=== PATIENT | male | born 1925 | race Hispanic/Latino ===

== ENCOUNTER 2017-02-25 14:32 | Inpatient (IN) | payer MEDICARE, OTHER ==
--- NOTE | 2017-02-25 14:41 | ED PDOC ---
Arrival/HPI - General Time Seen by Provider: 02/25/17 14:35 Historian: Family, EMS - History of Present Illness Narrative History of Present Illness (Text): 02/25/17 14:56 Patient is an 89 yo male, as per family has past history including dementia, presents to emergency department with altered mental status. As per patient's daughter, patient "woke up this morning around 930" and he appeared to be weak and "this morning he couldn't cone picker his cup and spoon" and he "usually is able to do this". Family thought that the patient "maybe was just sleepy" and "he went back to bed" and family "had to wake him up at around 2 pm" and he " was not acting himself". No history of recent injury or trauma. Patient denies headache, denies chest pain or shortness of breath. Time/Duration: Other (since awakening at 0930 this morning) Past Medical History - Infectious Disease Hx of Infectious Diseases: None - Tetanus Immunization Tetanus Immunization: Unknown - Cardiac Hx Cardiac Disorders: Yes (CAD, pacemaker) - Pulmonary Hx Respiratory Disorders: No - Neurological Hx Dementia: Yes Hx Transient Ischemic Attacks (TIA): Yes - HEENT Hx HEENT Disorder: Yes Hx Cataracts: Yes Hx Glaucoma: Yes - Renal Hx Renal Disorder: No - Endocrine/Metabolic Hx Diabetes Mellitus Type 2: Yes Hx Hypothyroidism: Yes - Hematological/Oncological Hx Blood Disorders: No - Integumentary Hx Dermatological Disorder: No - Musculoskeletal/Rheumatological Hx Falls: No - Gastrointestinal Hx Gastrointestinal Disorders: Yes (INCONTINENT) - Genitourinary/Gynecological Hx Urinary Tract Infection: Yes Other/Comment: enlarged scrotum - Psychiatric Hx Depression: No Hx Emotional Abuse: No Hx Physical Abuse: No Hx Substance Use: No - Past Surgical History Past Surgical History: Non-Contributing - Surgical History Other/Comment: HYDROCELE REMOVAL IN MAY 2013 - Anesthesia Hx Anesthesia: Yes Hx Anesthesia Reactions: No Hx Malignant Hyperthermia: No - Suicidal Assessment Feels Threatened In Home Enviroment: No Family/Social History Family/Social History: Unknown Family HX Smoking Status: Never Smoked Hx Alcohol Use: No Hx Substance Use: No Hx Substance Use Treatment: No Allergies/Home Meds Allergies/Adverse Reactions: Allergies No Known Allergies Allergy (Verified 02/25/17 14:53) Home Medications: Home Meds Medication Instructions Recorded Confirmed Atorvastatin [Lipitor] 20 mg PO MWF 03/23/12 02/25/17 Sitagliptin Phosphate [Januvia] 100 mg PO DAILY 03/23/12 02/25/17 Glipizide [Glucotrol] 5 mg PO BID 04/05/13 02/25/17 Ramipril [Altace] 5 mg PO BID 04/16/13 02/25/17 amLODIPine [Norvasc] 2.5 mg PO DAILY 04/16/13 02/25/17 Aspirin [Aspir 81] 81 mg PO DAILY 05/15/13 02/25/17 Donepezil [Aricept] 10 mg PO DAILY 06/21/15 02/25/17 Levothyroxine [Synthroid] 25 mcg PO DAILY 06/21/15 02/25/17 Review of Systems - Review of Systems Systems not reviewed;Unavailable: Altered Mental Status Constitutional: Fatigue. absent: Fevers Eyes: absent: Vision Changes Respiratory: absent: SOB Cardiovascular: absent: Chest Pain Gastrointestinal: absent: Abdominal Pain Musculoskeletal: absent: Back Pain Skin: absent: Rash Neurological: Speech Changes. absent: Headache, Dizziness, Focal Weakness Hemo/Lymphatic: absent: Easy Bleeding Physical Exam Vital Signs Reviewed: Yes Vital Signs Temp Pulse Resp BP Pulse Ox 02/25/17 18:15 63 02/25/17 17:54 60 18 106/60 100 02/25/17 16:47 60 17 101/60 97 02/25/17 16:46 100.7 F H 02/25/17 15:35 100.8 F H 02/25/17 14:46 62 19 138/55 L 100 02/25/17 14:33 99.5 F 62 18 129/70 99 Temperature: Afebrile Appearance: Positive for: Ill-Appearing Mental Status: Positive for: Confused - Systems Exam Head: Present: Atraumatic Pupils: Present: PERRL Extroacular Muscles: Present: EOMI Mouth: Present: Dry Pharnyx: No: ERYTHEMA Nose (Internal): Present: Normal Inspection Neck: Present: Normal Range of Motion. No: Meningeal Signs Respiratory/Chest: Present: Clear to Auscultation. No: Respiratory Distress Cardiovascular: Present: Regular Rate and Rhythm, Murmurs Abdomen: No: Tenderness, Distention, Peritoneal Signs Upper Extremity: No: Cyanosis Lower Extremity: Present: Neurovascularly Intact. No: Edema Neurological: No: Speech Normal, Motor Func Grossly Intact, Gait Normal Skin: Present: Warm Psychiatric: No: Normal Insight, Normal Concentration Medical Decision Making ED Course and Treatment: 02/25/17 16:02 Patient on arrival is awake, will follow commands, and initially denies any chest pain or shortness of breath. I feel history from patient is unreliable as he has history of dementia reportedly, although on exam there is no tachypnea or hypoxia noted. Blood pressure and heart rate stable. Prior admission from earlier this year reviewed. Past cardiology consultations reviewed. EKG reveals a paced rhythm rate of 77. CXR reveals cardiomegaly with pulmonary vascular congestion. He reportedly was found "not acting himself" since 930 this morning, thus he is NOT a tpa candidate for differential diagnosis of cva/tia. CT head reviewed. No bleed reported. On re-exam, he will move all extremities, follow commands. Troponin elevated, patient denies chest pain or discomfort at this time. ASA and lovenox ordered for possible non st elevation WI. Rectal temp elevated, cultures ordered and drawn. At this point patient not hypotensive and not in respiratory distress. Plan to admit for possible WI, r/o cva/tia, evaluation for infection/sepsis. 02/25/17 16:46 I discussed case with patient's offset second press operator Dr. Paredes. On re-exam, patient comfortable, no respiratory distress. BP stable. Troponin reviewed with sap pp consultant and family. Risks for WI, sepsis, tia/cva reviewed. Neuro exam currently with no focal weakness. - Lab Interpretations Microbiology Results: Microbiology Results 02/25/17 15:40 Blood Blood Culture - Preliminary NO GROWTH AFTER 24 HOURS 02/25/17 15:10 Blood Blood Culture - Preliminary NO GROWTH AFTER 24 HOURS 02/25/17 16:13 Urine Urine Culture - Final No Growth (<1,000 CFU/ML) Lab Results: 02/25/17 14:50 02/25/17 14:50 Lab Results 02/25/17 16:13: Urine Color yellow, Urine Appearance Clear, Urine pH 6.0, Ur Specific [place] 1.020, Urine Protein Trace H, Urine Glucose (UA) Negative, Urine Ketones Negative, Urine Blood Large H, Urine Nitrate Negative, Urine Bilirubin Negative, Urine Urobilinogen 0.2, Ur Leukocyte Esterase Negative, Urine RBC 25 - 30, Urine WBC 1 - 3, Ur Epithelial Cells 3 - 4 02/25/17 15:45: NT-Pro-B Natriuret Pep 1450 H 02/25/17 15:10: pO2 37, VBG pH 7.33, VBG pCO2 58.0, VBG HCO3 30.6 H, VBG Total CO2 32.4 H, VBG O2 Sat (Calc) 75.4 H, VBG Base Excess 3.2 H, VBG Potassium 5.3 H , Glucose 187 H, Lactate 2.4 H, FiO2 21.0, Sodium 136.0, Chloride 101.0, Venous Blood Potassium 5.3 H 02/25/17 14:50: Blood Type B POSITIVE, Antibody Screen Negative, BBK History Checked Patient has bt 02/25/17 14:50: Sodium 141, Potassium 4.6, Chloride 101, Carbon Dioxide 31, Anion Gap 14, BUN 21, Creatinine 1.1, Est GFR ( Amer) > 60, Est GFR (Non- Af Amer) > 60, Random Glucose 162 H, Calcium 8.9, Total Bilirubin 0.7, AST 24, ALT 24, Alkaline Phosphatase 77, Troponin I 0.27 H* D, Total Protein 7.1, Albumin 4.0, Globulin 3.1, Albumin/Globulin Ratio 1.3, Triglycerides 81, Cholesterol 129 L, LDL Cholesterol Direct 54, HDL Cholesterol 52 02/25/17 14:50: PT 12.0, INR 1.10 H, APTT 33.2 02/25/17 14:50: WBC 10.4, RBC 3.65, Hgb 11.1 L, Hct 35.2 L, MCV 96.4, MCH 30.4, MCHC 31.5, RDW 14.3, Plt Count 240, MPV 9.9, Gran % 67.6, Lymph % (Auto) 22.1, [place] % (Auto) 9.3 H, Eos % (Auto) 0.8 L, Baso % (Auto) 0.2, Gran # 7.03 H, Lymph # 2.3, [place] # 1.0 H, Eos # 0.1, Baso # 0.02 02/25/17 14:38: POC Glucose (mg/dL) 243 H - RAD Interpretation Radiology Orders: 02/25/17 14:42 HEAD W/O (CODE STROKE) [CT] Stat 02/25/17 14:46 CHEST PORTABLE [RAD] Stat - Medication Orders Current Medication Orders: Acetaminophen (Tylenol 325mg Tab) 650 mg PO Q6H PRN PRN Reason: Fever >100.4 F Last Admin: 02/25/17 15:59 Dose: 650 mg MAR Pain/Vitals Document 02/25/17 15:59 AB (Rec: 02/25/17 16:00 AB [id number]) Pain Reassessment Is This A Pain ReAssessment? No Sleep Is patient sleeping during reassessment? No Presence of Pain Presence of Pain No Pain Scale Used Pain Scale Used Numeric Amlodipine Besylate (Norvasc) 2.5 mg PO DAILY [facility] Last Admin: 02/26/17 10:23 Dose: 2.5 mg MAR Blood Pressure Document 02/26/17 10:23 KL (Rec: 02/26/17 10:23 [id number]) Blood Pressure Blood Pressure (100/60-150/90) 120/63 Aspirin (Ecotrin) 81 mg PO DAILY [facility] Last Admin: 02/26/17 10:23 Dose: 81 mg Atorvastatin Calcium (Lipitor) 20 mg PO MWF [facility] Clopidogrel Bisulfate (Plavix) 75 mg PO DAILY [facility] Last Admin: 02/26/17 10:22 Dose: 75 mg Donepezil HCl (Aricept) 10 mg PO HS [facility] Glipizide (Glucotrol) 5 mg PO BID [facility] Last Admin: 02/26/17 10:23 Dose: 5 mg Ceftriaxone Sodium (Rocephin 1 Gram Ivpb) 1 gm in 100 mls @ 100 mls/hr IVPB DAILY [facility] PRN Reason: Protocol Last Admin: 02/26/17 10:23 Dose: 100 mls/hr eMAR Start Stop Document 02/26/17 10:23 KL (Rec: 02/26/17 10:23 [id number]) Intravenous Solution Start Date 02/26/17 Start Time 10:23 Insulin Human Lispro (Humalog Med) 0 units SC ACHS [facility] PRN Reason: Protocol Last Admin: 02/26/17 12:12 Dose: 1 units MAR Blood Glucose Document 02/26/17 12:12 SANDIE (Rec: 02/26/17 12:13 SANDIE [id number]) Blood Glucose Finger Stick Blood Glucose (70-120) 174 Subcutaneous Administrations Document 02/26/17 12:12 SANDIE (Rec: 02/26/17 12:13 SANDIE [id number]) Injection Site MAR Injection Site Right Arm Charges for Administration # of Subcutaneous Administrations 1 Levothyroxine Sodium (Synthroid) 25 mcg PO DAILY [facility] Last Admin: 02/26/17 10:23 Dose: 25 mcg Metoprolol Tartrate (Lopressor) 12.5 mg PO BID [facility] Last Admin: 02/26/17 10:22 Dose: 12.5 mg MAR Pulse and Blood Pressure Document 02/26/17 10:22 KL (Rec: 02/26/17 10:22 [id number]) Pulse Pulse Rate (60-90) 63 Blood Pressure Blood Pressure (100/60-150/90) 120/63 Pantoprazole Sodium (Protonix Ec Tab) 40 mg PO 0600 [facility] Last Admin: 02/26/17 05:12 Dose: 40 mg Ramipril (Altace) 5 mg PO BID [facility] Last Admin: 02/26/17 10:23 Dose: 5 mg MAR Blood Pressure Document 02/26/17 10:23 KL (Rec: 02/26/17 10:23 KL [id number]) Blood Pressure Blood Pressure (100/60-150/90) 120/63 Sitagliptin Phosphate (Januvia) 100 mg PO DAILY [facility] Last Admin: 02/26/17 10:22 Dose: 100 mg Discontinued Medications Aspirin (Aspirin Chewable) 81 mg PO STAT STA Stop: 02/25/17 15:53 Last Admin: 02/25/17 15:58 Dose: 81 mg Enoxaparin Sodium (Lovenox) 70 mg SC STAT STA PRN Reason: Protocol Stop: 02/25/17 15:55 Last Admin: 02/25/17 16:03 Dose: 70 mg Subcutaneous Administrations Document 02/25/17 16:03 AB (Rec: 02/25/17 16:16 AB [id number]) Injection Site MAR Injection Site Left Abdomen Charges for Administration # of Subcutaneous Administrations 1 NIHSS Scale ([place]i) Time Performed: 14:35 - How Severe is the Stoke Baseline Level of Consciousness: 0=Alert LOC to Questions: 0=Both comments correct LOC to commands: 0=Obeys both correctly Best Gaze: 0=Normal Visual: 0=No visual loss Facial: 0=Normal Motor Arm - Left: 1=Drift noted before 10 sec Motor Arm - Right: 1=Drift noted before 10 sec Motor Leg - Left: 1=Drift before 5 sec Motor Leg - Right: 1=Drift before 5 sec Limb Ataxia: 0=Absent Sensory: 0=Normal Best Language: 0=No aphasia Dysarthia: 0=Normal articulation Extinction & Inattention (Neglect): 0=Normal, no object Score: 4 Risk Level: Minor Stroke Risk Disposition/Present on Arrival - Present on Arrival Any Indicators Present on Arrival: Yes History of DVT/PE: No History of Uncontrolled Diabetes: Yes Urinary Catheter: No History Surgical Site Infection Following: None - Disposition Have Diagnosis and Disposition been Completed?: Yes Diagnosis: Elevated troponin, Altered mental status, Myocardial infarction Disposition: HOSPITALIZED Disposition Time: 16:06 Patient Plan: Admission, Telemetry Patient Problems: Current Active Problems Problem Status Onset Altered mental status Acute Elevated troponin Acute Myocardial infarction Acute Condition: SERIOUS
[2017-02-25 14:42] VITALS: BMI 27.3
[2017-02-25 15:15] LABS: BASO # 0.02 K/mm3 (0.0-2.0); BASO % 0.2 % (0.0-3.0); EOS # 0.1 (0.0-0.7); EOS % 0.8 % (1.5-5.0); GRAN # 7.03 (1.4-6.5); GRAN % 67.6 % (50.0-68.0); HEMATOCRIT 35.2 % (42.0-52.0); LYMPH # 2.3 (1.2-3.4); LYMPH % 22.1 % (22.0-35.0); MEAN CELL VOLUME 96.4 fl (80.0-105.0); MEAN CORPUSCULAR HEMOGLOBIN 30.4 pg (25.0-35.0); MEAN CORPUSCULAR HGB CONC 31.5 g/dl (31.0-37.0); MEAN PLATELET VOLUME 9.9 fl (7.0-11.0); MONO % 9.3 % (1.0-6.0); RED CELL DISTRIBUTION WIDTH 14.3 % (11.5-14.5); WHITE BLOOD COUNT 10.4 10^3/ul (4.5-11.0)
--- NOTE | 2017-02-25 15:18 | CT ---
PROCEDURE: CT HEAD WITHOUT CONTRAST. HISTORY: r/o cva COMPARISON: 06/21/2015 TECHNIQUE: Axial computed tomography images were obtained through the head/brain without intravenous contrast. Radiation dose: Total exam DLP = 825 mGy-cm. This CT exam was performed using one or more of the following dose reduction techniques: Automated exposure control, adjustment of the mA and/or kV according to patient size, and/or use of iterative reconstruction technique. FINDINGS: HEMORRHAGE: No intracranial hemorrhage. BRAIN: No mass effect or edema. Severe chronic microvascular changes are seen in the periventricular white matter. There are no acute findings VENTRICLES: Moderate atrophy CALVARIUM: Unremarkable. PARANASAL SINUSES: Unremarkable as visualized. No significant inflammatory changes. MASTOID AIR CELLS: Unremarkable as visualized. No inflammatory changes. OTHER FINDINGS: None. IMPRESSION: Moderate atrophy with severe chronic microvascular changes. No acute infarct or hemorrhage
[2017-02-25 15:27] LABS: ALB/GLOB RATIO 1.3 (1.1-1.8); ALKALINE PHOSPHATASE 77 U/L (38-126); ALT/SGPT 24 U/L (7-56); AST/SGOT 24 U/L (17-59); BILIRUBIN,TOTAL 0.7 mg/dL (0.2-1.3); BLOOD UREA NITROGEN 21 mg/dL (7-21); CALCIUM 8.9 mg/dL (8.4-10.5); CARBON DIOXIDE 31 mmol/L (21-33); CHLORIDE 101 mmol/L (98-107); CHOLESTEROL 129 mg/dL (130-200); GFR AFRICAN-AMERICAN > 60; GLUCOSE,RANDOM 162 mg/dL (70-110); POTASSIUM 4.6 mmol/L (3.6-5.0); SODIUM 141 mmol/L (132-148); TOTAL PROTEIN 7.1 g/dL (5.8-8.3)
[2017-02-25 15:31] LABS: INR 1.1 (0.93-1.08); PARTIAL THROMBOPLASTIN TIME 33.2 Seconds (25.1-36.5)
[2017-02-25 15:31] LABS: VENOUS BLOOD GAS BASE EXCESS 3.2 mmol/L (0.0-2.0); VENOUS BLOOD PH 7.33 (7.32-7.43)
[2017-02-25 15:45] LABS: TROPONIN I 0.27 ng/mL
[2017-02-25] MEDS ORDERED: Enoxaparin 80 mg Syringe SC STA (15:54)
[2017-02-25 16:36] LABS: URINE BILIRUBIN NEGATIVE (NEGATIVE); URINE BLOOD LARGE (NEGATIVE); URINE GLUCOSE (UA) NEGATIVE (NEGATIVE); URINE KETONE NEGATIVE (NEGATIVE); URINE LEUKOCYTE ESTERASE NEGATIVE Leu/uL (NEGATIVE); URINE PROTEIN TRACE mg/dL (<30 mg/dL); URINE UROBILINOGEN 0.2 E.U./dL (<1 E.U./dL)
[2017-02-25] MEDS: Insulin Lispro (humaLOG) MEDIUM Coverage SC SCH ×2 (16:54→21:30)
[2017-02-25 16:59] LABS: URINE APPEARANCE CLEAR (CLEAR)
[2017-02-25 17:00] LABS: URINE RBC 25 - 30 /hpf (0-2)
[2017-02-25] MEDS: Levothyroxine 25 MCG TAB PO SCH (17:28)
[2017-02-25 19:27] LABS: VENOUS BLOOD PH 7.47 (7.32-7.43)
--- NOTE | 2017-02-26 05:05 | HP ---
HISTORY OF PRESENT ILLNESS: The patient is an 89-year-old known to me from multiple previous admission being cleared by his daughter, who is very concerned and very supportive. According to daughter he woke up this morning between 9 o' clock and 10 and he felt weak. The patient is not doing very much verbal. History was furnished by his daughter. When she fed him breakfast his hands were shaking and he looked lethargic and weak, so he fell asleep again and was woken up around 2 o' clock and daughter noticed that he seems to be little confused, so she thought he is having stoke, so she called ambulance and he was brought to emergency room. There is no history of fever or chills at home and no history of nausea or vomiting. No history of cough or congestion. The patient was admitted in July and at that point he had pneumonia. PAST MEDICAL HISTORY: Significant for: 1. Dementia. 2. Hypertension. 3. Coronary artery disease. 4. History of bipolar disorder. 5. COPD. 6. Non-insulin dependent diabetes. ALLERGIES: HE IS NOT ALLERGIC TO ANY MEDICATION. SOCIAL HISTORY: He is single, lives with his daughter. MEDICATIONS AT HOME: He is on levothyroxine 25 mcg daily, Norvasc 5 mg daily, Januvia 100 mg, mg twice a day, Seroquel 50 mg at bedtime, levothyroxine 25 mg daily and glipizide 5 mg twice a day. REVIEW OF SYSTEMS: Significant for mild confusion. PHYSICAL EXAMINATION: VITAL SIGNS: He is afebrile. Pulse 61, respirations 18 and blood pressure 102/66. LUNGS: Bilateral fair airflow, decreased at the bases. HEART: S1 and S2 audible. ABDOMEN: Soft, nontender. No rebound, no guarding. NEUROLOGICAL: He is sleepy, but arousable, but moves all extremities. Bilateral leg no edema. LABORATORY DATA: WBCs 10.4, hemoglobin 11, hematocrit 35.2 and platelets 40. PT 12.0, INR 1.10. Chemistry: Sodium 140, potassium 4.6, chloride 101, CO2 of 31, BUN 21, creatinine 1.1, blood sugar 162. Troponin 0.27. BNP 1450. Total cholesterol is 129. Urinalysis; positive blood and 25 to [address] scan of the had done, that is unremarkable. X-ray of the chest showed mild venous congestion with severe chronic microvascular changes, but no acute infarct. ASSESSMENT: 1. Altered mental status. The patient spiked low-grade fever while he was in the emergency room. Rule out underlying infection. 2. Dementia. 3. Non-insulin dependent diabetes. 4. Hyperlipidemia. 5. Positive troponin, rule out coronary ischemia. 6. Bipolar disorder. 7. Hypothyroidism. PLAN: Restart the patient on his usual medications. He is on amlodipine at 5 mg twice a day. He is on Aricept 10 mg daily, aspirin 81 daily and glipizide 5 mg twice a day. I will start him on Januvia and Lipitor. Levothyroxine 25 daily and cardiology consult by Dr. Lopez and neuro consult by Dr. Alcazar has been requested. We will follow his electrolyte, troponin in a.m. Monitor his sugar. Out of bed to chair at physical therapy evaluation. Addy Coughlin MD
[2017-02-26] MEDS: Pantoprazole 40 mg EC Tab PO SCH (05:12)
[2017-02-26] MEDS: Insulin Lispro (humaLOG) MEDIUM Coverage SC SCH ×4 (08:15→21:49)
--- NOTE | 2017-02-26 08:33 | CON ---
NEUROLOGY CONSULTATION REPORT DATE: REASON FOR CONSULTATION: Altered mental status. HISTORY OF PRESENT ILLNESS: The patient is an 89-year-old male, who has been asked for evaluation of altered mental status. Apparently, the patient woke up around 9:30 and he appeared to be weak all over. Family thought may be the patient was sleepy, and he went back to bed. Later on, when he woke up around 2:00 p.m., the patient was not acting himself as per family. The patient himself is not able to give history because of his underlying dementia. The history is mainly from the chart. The patient does not know why he is in the hospital. REVIEW OF SYSTEMS: Denies any headache, dizziness, chest pain, shortness of breath, abdominal pain, constipation, diarrhea, dysuria, cough, or sputum production. PAST MEDICAL HISTORY: Includes hypertension, dementia, hypercholesterolemia, and diabetes mellitus. MEDICATIONS: His medications at home included amlodipine, Januvia, Altace, Synthroid, glipizide, Aricept, Lipitor, and aspirin. ALLERGIES: NO KNOWN DRUG ALLERGIES. SOCIAL HISTORY: The patient is a nonsmoker, nonalcoholic, and does not use any illicit drugs. FAMILY HISTORY: Noncontributory to the case. PHYSICAL EXAMINATION: GENERAL: The patient is an elderly male, lying on the bed, in no acute distress. VITAL SIGNS: His blood pressure is 102/56, heart rate is 60 per minute, breathing at rate of 16 per minute, and temperature is 98.4 degrees Fahrenheit. HEENT: Head is normocephalic and atraumatic. NECK: Supple. There are no carotid bruits. LUNGS: Clear. CARDIOVASCULAR: S1 and S2 audible. No murmurs. ABDOMEN: Soft and nontender. Bowel sounds are present. NEUROLOGIC: Mental status, the patient is awake and alert. He does not know the year, the month, the date. He does not know the name of the President. He follows simple commands. Cranial nerve examination, pupils are 3 mm bilaterally reactive to light. Visual burger are full. Extraocular movements are intact. There is no facial asymmetry. He is moving all 4 extremities symmetrically. Plantars are downgoing bilaterally. Reflexes +1 and symmetrical. Cerebellar examination, [id number] shows no dysmetria. Sensory examination, intact to soft touch and pinprick bilaterally. Gait is deferred at the moment. LABORATORY DATA: Reviewed, showed WBC of 10.4, hemoglobin of 11.1, hematocrit of 35.2, and platelet of 240. Sodium is 141, potassium 4.6, chloride 101, carbon dioxide 31, BUN of 21, creatinine of 1.1, and glucose of 162. His urinalysis shows wbc of 1 to 3, nitrite negative. He had a CT scan of the head done, which shows no acute intracranial pathology, moderate atrial fib with severe chronic microvascular changes. IMPRESSION: 1. Altered mental status with history of dementia. 2. Cerebrovascular disease. RECOMMENDATIONS: 1. The patient will have an electroencephalogram. 2. Unfortunately, cannot do MRI of the brain because of presence of permanent pacemaker. 3. The patient to have serum ammonia level. 4. The patient's troponin was high and that needs to be evaluated. 5. The patient is currently on Aricept, which is to be continued. 6. The patient also to be continued on aspirin due to his underlying cerebrovascular disease. 7. Please continue supportive care and other treatment. Thank you for the opportunity to participate in the care of this patient. January Geronimo MD
--- NOTE | 2017-02-26 09:42 | RAD ---
HISTORY: ams COMPARISON: 07/14/2016 FINDINGS: LUNGS: No active pulmonary disease. PLEURA: No significant pleural effusion identified, no pneumothorax apparent. CARDIOVASCULAR: Mild cardiomegaly. Moderate aortic tortuosity. Dual lead pacemaker OSSEOUS STRUCTURES: No significant abnormalities. VISUALIZED UPPER ABDOMEN: Normal. OTHER FINDINGS: None. IMPRESSION: No active disease.
[2017-02-26] MEDS: Levothyroxine 25 MCG TAB PO SCH (10:23)
[2017-02-26] MEDS: cefTRIAXone 1 gm 1 GM/100 ML BAG IVPB SCH (10:23)
--- NOTE | 2017-02-26 14:48 | PN ---
DATE: 02/26/2017 LOCATION: The patient is in room #276, bed #2. REASON FOR CONSULTATION: Coronary artery disease, aortic stenosis, permanent pacemaker, altered mental status, low-grade fever. SUBJECTIVE: The patient's consult was dictated yesterday, report is pending. The patient lying flat in bed without chest pain, shortness of breath, or palpitation. The patient was brought to the hospital with altered mental status. The patient known to have dementia, COPD, status post permanent pacemaker insertion, aortic stenosis, coronary artery disease, diabetes, hypertension, hyperlipidemia, status post pacemaker battery change about 1 year ago, it was actually on 06/22/2015. The patient at home had increase in his mental status, was more confused and he felt very weak. He could not hold things in his hand and he was drowsy, so was brought by family to the hospital. Now, today, the patient is more alert. Denies any chest pain, shortness of breath, or palpitation. PHYSICAL EXAMINATION: VITAL SIGNS: Blood pressure 142/77, respirations 19, pulse 98 and temperature 97.1. HEENT: Head is normocephalic. Eyes: Pupils normal. Conjunctivae slightly pale. NECK: JVP low. Carotids equal. THORAX: AP diameter is normal. Pacemaker site intact. LUNGS: Clear. CARDIOVASCULAR: S1 and S2. Ejection systolic murmur. No rub. ABDOMEN: Soft, nontender. EXTREMITIES: No clubbing, no cyanosis. LABORATORY DATA: WBC 10.4, hemoglobin 11.1, hematocrit 35.2 and platelet 240. Troponin initial 0.21, second one 0.20. Sodium 141, potassium 4.6, BUN 21 and creatinine 1.1. DIAGNOSES: Altered mental status in a patient who has dementia, rule out cerebrovascular accident, rule out transient ischemic attack. The patient also had low-grade fever, rule out sepsis; aortic stenosis, aortic regurgitation, mitral regurgitation, status post permanent pacemaker in the past for which battery change was done on 06/22/2015; chronic obstructive pulmonary disease; hyperlipidemia; hypertension; diabetes; coronary artery disease. Slight troponin elevation, the patient has no chest pain, but one cannot rule out [id number] myocardial infarction. PLAN: The patient is asymptomatic from cardiac point of view, no history of chest pain, slight troponin elevation, can be related to [id number] myocardial infarction. The patient on ramipril 5 mg b.i.d.; aspirin 81 mg p.o. daily; 5 mg b.i.d.; Januvia 100 mg daily; Lipitor 20 mg Monday, Monday and Monday; metoprolol 12.5 mg b.i.d.; amlodipine 2.5 mg daily; Plavix 75 mg daily; Rocephin 1 g IV daily; Synthroid 25 mcg p.o. daily. The patient due to other comorbidities not a candidate for cardiac catheterization. The patient is asymptomatic. We will continue to treat medically. Jadon Paredes MD
--- NOTE | 2017-02-26 15:52 | PN ---
SUBJECTIVE: The patient has no complaints of any chest pain. No shortness of breath. No headaches. PHYSICAL EXAMINATION: VITAL SIGNS: Temperature is 99.2, pulse is 63, blood pressure is 120/62, respiration is 19. GENERAL: The patient is lying in bed, flat, comfortable. HEENT: No oral lesion. Anicteric sclerae. Moist mucosa. NECK: No JVD, adenopathy, or thyromegaly. CARDIOVASCULAR: S1 and S2, regular. No murmurs, rubs, or gallops. LUNGS: Clear to auscultation bilaterally. No wheeze, rales, or rhonchi. ABDOMEN: Bowel sounds are positive, soft, nontender and nondistended. EXTREMITIES: No cyanosis, clubbing or edema. LABORATORY DATA: White count of 10.4, hemoglobin 11.1, and creatinine is 1.1. ASSESSMENT: 1. Delirium. 2. Dementia, probably Alzheimer type. 3. Diabetes type 2. 4. Dyslipidemia. 5. Bipolar disorder. 6. Hypothyroidism. PLAN: The patient is currently comfortable. The patient is on Aricept for dementia. He is going to continue with ramipril for hypertension. He is on aspirin daily. He is on Glucotrol for his diabetes. He is on Januvia as well. He is on Lipitor for dyslipidemia. He is going to continue with amlodipine for hypertension. He is on Rocephin for antibiotics. He is going to be on Synthroid for hypothyroidism. Urine cultures have been negative. This is coverage for Dr. Coughlin. He has an EEG that has been ordered. He was seen by Dr. Geronimo, I appreciate his input. Roberto Menendez MD
--- NOTE | 2017-02-26 21:04 | CARD ---
APPROVED REPORT EKG Measurement Heart [id number] P34 [id number] <Conclusion> Electronic ventricular pacemaker
--- NOTE | 2017-02-26 22:08 | CP.PCM.PN ---
Subjective - Date & Time of Evaluation Date of Evaluation: 02/26/17 Time of Evaluation: 22:05 - Subjective Subjective: S: It was requested to insert a heparin lock. Patient has no complaints now. Pertinent medical record was reviewed. O: Last Vital Signs 3 Temp 98.5 F 02/26/17 18:00 Pulse 100 H 02/26/17 18:09 Resp 19 02/26/17 18:00 BP 155/90 H 02/26/17 18:10 Pulse Ox 98 02/26/17 18:00 Awake, alert , not in distress. LUNGS:Normal breathing pattern. A:Poor venous access. Encounter for insertion of intravenous line. P:# 20 angiocath was inserted in left hand. Objective - Vital Signs/Intake and Output Vital Signs (last 24 hours): Temp Pulse Resp BP Pulse Ox 98.5 F 100 H 19 155/90 H 98 02/26/17 18:00 02/26/17 18:09 02/26/17 18:00 02/26/17 18:10 02/26/17 18:00 - Medications Medications: Current Medications Acetaminophen (Tylenol 325mg Tab) 650 mg PO Q6H PRN PRN Reason: Fever >100.4 F Last Admin: 02/25/17 15:59 Dose: 650 mg Alprazolam (Xanax) 0.25 mg PO TID PRN; Protocol PRN Reason: Anxiety Stop: 03/05/17 18:01 Amlodipine Besylate (Norvasc) 2.5 mg PO DAILY [facility] Last Admin: 02/26/17 10:23 Dose: 2.5 mg Aspirin (Ecotrin) 81 mg PO DAILY [facility] Last Admin: 02/26/17 10:23 Dose: 81 mg Atorvastatin Calcium (Lipitor) 20 mg PO [facility] Clopidogrel Bisulfate (Plavix) 75 mg PO DAILY [facility] Last Admin: 02/26/17 10:22 Dose: 75 mg Donepezil HCl (Aricept) 10 mg PO HS [facility] Last Admin: 02/26/17 21:48 Dose: 10 mg Glipizide (Glucotrol) 5 mg PO BID [facility] Last Admin: 02/26/17 18:09 Dose: 5 mg Ceftriaxone Sodium (Rocephin 1 Gram Ivpb) 1 gm in 100 mls @ 100 mls/hr IVPB DAILY [facility] PRN Reason: Protocol Last Admin: 02/26/17 10:23 Dose: 100 mls/hr Insulin Human Lispro (Humalog Med) 0 units SC ACHS [facility] PRN Reason: Protocol Last Admin: 02/26/17 21:49 Dose: Not Given Levothyroxine Sodium (Synthroid) 25 mcg PO DAILY [facility] Last Admin: 02/26/17 10:23 Dose: 25 mcg Metoprolol Tartrate (Lopressor) 12.5 mg PO BID [facility] Last Admin: 02/26/17 18:09 Dose: 12.5 mg Pantoprazole Sodium (Protonix Ec Tab) 40 mg PO 0600 [facility] Last Admin: 02/26/17 05:12 Dose: 40 mg Ramipril (Altace) 5 mg PO BID [facility] Last Admin: 02/26/17 18:10 Dose: 5 mg Sitagliptin Phosphate (Januvia) 100 mg PO DAILY [facility] Last Admin: 02/26/17 10:22 Dose: 100 mg - Labs Labs: PT 12.0 SECONDS (9.4-12.5) 02/25/17 14:50 INR 1.10 (0.93-1.08) H 02/25/17 14:50 APTT 33.2 Seconds (25.1-36.5) 02/25/17 14:50
[2017-02-27] MEDS: Pantoprazole 40 mg EC Tab PO SCH (05:05)
[2017-02-27] MEDS: Insulin Lispro (humaLOG) MEDIUM Coverage SC SCH ×4 (07:35→22:31)
[2017-02-27 09:07] LABS: HEMATOCRIT 32.5 % (42.0-52.0); MEAN CELL VOLUME 97.3 fl (80.0-105.0); MEAN CORPUSCULAR HEMOGLOBIN 30.8 pg (25.0-35.0); MEAN CORPUSCULAR HGB CONC 31.7 g/dl (31.0-37.0); MEAN PLATELET VOLUME 9.9 fl (7.0-11.0); RED CELL DISTRIBUTION WIDTH 14.5 % (11.5-14.5); WHITE BLOOD COUNT 10.6 10^3/ul (4.5-11.0)
[2017-02-27 09:15] LABS: ALB/GLOB RATIO 1.2 (1.1-1.8); ALKALINE PHOSPHATASE 66 U/L (38-126); ALT/SGPT 29 U/L (7-56); AST/SGOT 21 U/L (17-59); BILIRUBIN,TOTAL 0.7 mg/dL (0.2-1.3); BLOOD UREA NITROGEN 26 mg/dL (7-21); CALCIUM 8.3 mg/dL (8.4-10.5); CARBON DIOXIDE 28 mmol/L (21-33); CHLORIDE 105 mmol/L (95-110); GFR AFRICAN-AMERICAN > 60; GLUCOSE,RANDOM 167 mg/dL (70-110); MAGNESIUM 2.3 mg/dL (1.7-2.2); PHOSPHOROUS 4.5 mg/dL (2.5-4.5); POTASSIUM 4.5 mmol/L (3.6-5.0); SODIUM 140 mmol/L (132-148); TOTAL PROTEIN 6.5 g/dL (5.8-8.3)
--- NOTE | 2017-02-27 09:48 | CON ---
DATE: 02/25/2017 LOCATION: The patient is in the emergency room and going to room 276, bed 2, REASON FOR CONSULTATION: Altered mental status, elevated troponin, status post pacemaker insertion, moderate aortic stenosis, [id number] aortic regurgitation, moderate mitral regurgitation, mild tricuspid regurgitation. HISTORY OF PRESENT ILLNESS: The patient is an 89-year-old male who has coronary artery disease, diabetes, hypertension, hyperlipidemia, status post permanent pacemaker insertion about 7 years ago, and pacemaker battery generator was done about a year ago. The patient also is known to have Alzheimer's. At this morning, according to daughter when he woke up, his strength was very weak and he was drowsy. The patient is now able to answer questions. He denies chest pain, shortness of breath, or palpitation. The patient, at this morning, could not hold anything in his hand because of weakness. PAST MEDICAL HISTORY: Significant for COPD, coronary artery disease, hypertension, hyperlipidemia, pacemaker insertion, recently had a pacemaker generator change 1 year ago, hypothyroidism, anxiety disorder, Alzheimer's disease. Previous cardiac workup, the patient had a echo done on 05/19/2015 that showed ejection fraction of 55%, [id number] aortic regurgitation, moderate aortic stenosis, [id number] mitral regurgitation, mild tricuspid regurgitation, and mmHg. The patient's pacemaker generator change was done on 06/22/2015. PERSONAL HISTORY: No history of smoking, no history of alcohol abuse. MEDICATIONS: The patient's medication at home was amlodipine 2.5 mg daily, Januvia 100 mg daily, ramipril 5 mg b.i.d., Synthroid 25 mcg daily, Glucotrol 5 mg b.i.d., Aricept 10 mg daily, Lipitor 20 mg daily, and aspirin 81 mg daily. ALLERGIES: NO KNOWN ALLERGIES. PAST SURGICAL HISTORY: The patient had hydrocele repair, pacemaker insertion, recent pacemaker generator changes on 06/22/2015. REVIEW OF SYSTEMS: All other systems reviewed. Positive mentioned in the history, others were negative. PHYSICAL EXAMINATION: VITAL SIGNS: The patient's pulse is about 70 per minute, blood pressure 110/70, respirations 20, temperature is close to 100. HEENT: Head is normocephalic. Eyes, pupils normal. Conjunctivae slightly pale. NECK: JVP low. Carotids equal. Thorax AP diameter normal. LUNGS: Clear. CARDIOVASCULAR: S1 and S2. Ejection systolic murmur grade 3/6. No rub. ABDOMEN: Soft. Nontender. No organomegaly. EXTREMITIES: No clubbing. No cyanosis. LABORATORY DATA: Showed WBC 10.6, hemoglobin 11.1, hematocrit 35.2, and platelet 240. Sodium 141, potassium 4.6. AST, ALT, protein, total protein, albumin normal. Cholesterol 129. Troponin 0.027, which is slightly elevated. EKG showed paced rhythm. Chest x-ray showed increased marking, but the patient's film is also underpenetrated. CAT scan of the head showed moderate atrophy and microvascular changes. DIAGNOSES: Altered mental status rule out cerebrovascular accident, rule out encephalopathy, rule out sepsis, low-grade fever, diabetes, hypertension, hyperlipidemia, moderate aortic stenosis, [id number] aortic regurgitation, moderate mitral regurgitation, mild tricuspid regurgitation, LV ejection fraction of 46% on echocardiogram 05/20/2015, status post pacemaker insertion, status post pacemaker generator change on 06/22/2015. RECOMMENDATIONS: We will repeat troponin and follow up troponin, right now the patient does not have chest pain. The patient has already started amlodipine 2.5 mg daily, Januvia 100 mg daily, ramipril 5 mg b.i.d., Synthroid 25 mcg daily, Glucotrol 5 mg b.i.d., Aricept 10 mg daily, Lipitor 20 mg daily, aspirin 81 mg daily. Neurology consult has been already requested. The patient has Alzheimer's also and the patient at home also has urinary incontinence. We will do urine culture and sensitivity and blood cultures and we will start Rocephin 1 g IV daily, and we will follow with you with repeat troponin level. Jadon Paredes MD
[2017-02-27] MEDS: cefTRIAXone 1 gm 1 GM/100 ML BAG IVPB SCH (09:56)
[2017-02-27] MEDS: Levothyroxine 25 MCG TAB PO SCH (09:59)
[2017-02-27 10:54] LABS: TROPONIN I 0.13 ng/mL
--- NOTE | 2017-02-27 10:56 | PN ---
DATE: 02/27/2017 REASON FOR CONSULTATION: Coronary artery disease, aortic stenosis, permanent pacemaker, altered mental status, low-grade fever. SUBJECTIVE: The patient denies any chest pain, shortness of breath, lying flat on the bed, obviously not in apparent distress. PHYSICAL EXAMINATION: VITAL SIGNS: Temperature afebrile, heart rate 60 and blood pressure 136/53. HEENT EXAMINATION: PERRLA. Extraocular muscles Intact. NECK: Supple. No carotid bruits. No thyromegaly. CHEST: Clear to auscultation. HEART: S1 and S2, regular. ABDOMEN: Soft. EXTREMITIES: Clubbing and cyanosis negative. LABORATORY DATA: Blood workup as follows: WBC 10.6, hemoglobin 10.3, hematocrit 33.52 and platelet count 241. Chemistries show sodium 140, potassium 4.5, chloride 105, carbon dioxide 28, anion gap of 12, BUN 26 and creatinine 1.0. Total protein 6.5, albumin 3.5, albumin and globulin ratio 1.2. IMPRESSION: An 89-year-old male with past medical history of dementia; history of chronic obstructive pulmonary disease; history of permanent pacemaker, aortic stenosis, status post generator change 1 year ago, coronary artery disease, status post state of confusion, low-grade fever, rule out urinary tract infection, history of hypertension, history of diabetes. The patient on admission had troponin borderline elevated at 0.27, but asymptomatic, altered mental status and elevated WBC. RECOMMENDATIONS: Given the patient's age, comorbidity, mental status, asymptomatology, positive troponin, we will not treat aggressively with intervention, but treat medically, no chest pain, though the patient can have the underlying coronary artery disease and [id number]-QZ-[id number] myocardial infarction, but we will treat medically. We will continue ramipril, aspirin, Lipitor, Plavix and continue broad-spectrum antibiotics. Monitor electrolytes. Repeat chest x-ray to rule out any underlying pneumonia. We will add CPK and troponin in the morning sample. The patient's TSH yesterday was 3.33, hemoglobin A1c was 7.4 and total cholesterol 129, LDL of 54, HDL of 52 and triglyceride 81. We will treat medically with ramipril 5 mg daily, aspirin, glipizide, metoprolol 12.5 b.i.d. and clopidogrel. We will follow with you. Thank you Dr. Coughlin for providing the opportunity in taking care of the patient, Luis Felipe Varela. If he remains stable, we will discontinue telemetry. Jadon Lopez MD
--- NOTE | 2017-02-27 10:57 | RAD ---
HISTORY: R/O pneumonia Vs CHF COMPARISON: 02/25/2017 FINDINGS: LUNGS: No active pulmonary disease. PLEURA: No significant pleural effusion identified, no pneumothorax apparent. CARDIOVASCULAR: Normal. OSSEOUS STRUCTURES: No significant abnormalities. VISUALIZED UPPER ABDOMEN: Normal. OTHER FINDINGS: Moderate aortic tortuosity. Dual lead pacemaker IMPRESSION: No active disease.
[2017-02-27] MEDS: Levalbuterol 0.63 MG/3 ML Inhal Soln UD IH SCH ×2 (14:14→19:50)
--- NOTE | 2017-02-27 14:22 | PN ---
DATE: SUBJECTIVE: The patient is 89 years old, seen and examined, sleepy, but arousable. PHYSICAL EXAMINATION VITAL SIGNS: He is afebrile, pulse 62, respirations 19, and blood pressure 136/63. LUNGS: Bilateral fair airflow. No rhonchi or crackle. HEART: S1 and S2 audible. ABDOMEN: Soft and nontender. No rebound. No guarding. NEUROLOGIC: The patient is sleepy, but arousable, able to move all extremities. LABORATORY DATA: WBC is 10.6, hemoglobin 10.3, hematocrit 32.5, platelet of 241. Chemistry; sodium 140, potassium 4.5, chloride 105, CO2 of 28, BUN 26, creatinine 1.0, blood sugar of 167. Urine shows large blood with rbc's. Blood cultures and urine cultures are negative. X-ray of chest is unremarkable. CT scan showed age-appropriate changes. ASSESSMENT AND PLAN: 1. Non-ST elevation myocardial infarction. The patient is asymptomatic at this point. 2. History of dementia. 3. Status post pacemaker placement. 4. Hypertension. 5. Non-insulin dependent diabetes. 6. Bipolar disorder. PLAN: We will monitor the patient clinically. Beta sarah has been started. The patient's blood cultures and urine cultures are negative. I will stop the patient's antibiotic. Discussed with the daughter who is at the bedside. I will discuss with other sales development consultant; Dr. Lopez's input noted. We will continue him on medical treatment and reevaluate the patient. Addy Coughlin MD
--- NOTE | 2017-02-27 20:22 | CON ---
DATE: HISTORY OF PRESENT ILLNESS: The patient is an 89-year-old male, brought to the ER by his supportive daughter with whom he lives. He was nonresponsive, but awake. She was concerned he had a stroke; however, he does have a history of dementia and his confusion had been worsening. PAST MEDICAL PROBLEMS: In addition to dementia, he has history of hypertension, coronary artery disease, non-insulin dependent diabetes mellitus, and COPD. The patient has a cardiac pacemaker. The patient noted from a consult to also have moderate aortic stenosis, mitral regurgitation, ejection fraction of 55%. PERSONAL HISTORY: He has been a for approximately 3 years. Lives with his daughter who is very caring. The patient was born in [facility] and came to [facility] after [place]. CURRENT MEDICATIONS: The patient's current medications include amlodipine 2.5 mg daily, Januvia 100 mg daily, ramipril 5 mg b.i.d., Synthroid 25 mcg daily, Glucotrol 5 mg b.i.d., Aricept 10 mg daily, Lipitor 20 mg daily, and aspirin. The patient also currently here receiving Xanax 0.25 mg t.i.d., Rocephin 1 g IV daily, Protonix, Plavix, Norvasc, Januvia, Glucotrol, Aricept 10 mg at bedtime and Altace. I reviewed nurse's notes. The patient was noted by the staff to be sleeping during the night. He had no medication ordered. The patient was admitted according to risk control consultant's report of low-grade fever. LABORATORY DATA: As follows: His urine and blood cultures showed no growth up to 24 hours. The patient's current laboratory data, his white count is 10,600, his hemoglobin is 10.3, platelet count is 241,000. The patient's metabolic profile, he had an elevated troponin I level of 0.13. Rest of profile and electrolytes were normal. BUN 26, creatinine 1.0, estimated GFR greater than 60. Random glucose is 167. Calcium 8.3, magnesium 2.3. Rest of profile was normal. The patient's urinalysis showed negative urinary leukocyte esterase, unclear with a trace of protein. The patient had a CT scan of the head showing moderately severe cerebral atrophy. He has chronic severe microvascular diseases. REVIEW OF SYSTEMS: Unable to ascertain due to poor mental status. MENTAL STATUS EXAMINATION: He is awake, disoriented x3. Affect is flat. He is pleasant. No agitation noted today. Recent memory, judgement, and insight all poor. IMPRESSION: Vascular type dementia with acute confusional state. The patient has a history of change in mental status. The patient has a history of chronic obstructive pulmonary disease, pacemaker, aortic stenosis, post generator change 1 year ago, and did have a low-grade fever. The patient had a borderline troponin level. The patient had a possible non-ST wave segment myocardial infarction. PLAN: We will review psychotropic medicine. Monitor mental status. Kunal Llanes MD
[2017-02-28] MEDS: Pantoprazole 40 mg EC Tab PO SCH (06:43)
[2017-02-28 07:49] LABS: ALB/GLOB RATIO 1.2 (1.1-1.8); ALKALINE PHOSPHATASE 66 U/L (38-126); ALT/SGPT 28 U/L (7-56); AST/SGOT 19 U/L (17-59); BILIRUBIN,TOTAL 0.6 mg/dL (0.2-1.3); BLOOD UREA NITROGEN 23 mg/dL (7-21); CALCIUM 8.4 mg/dL (8.4-10.5); CARBON DIOXIDE 29 mmol/L (21-33); CHLORIDE 102 mmol/L (95-110); GFR AFRICAN-AMERICAN > 60; GLUCOSE,RANDOM 117 mg/dL (70-110); MAGNESIUM 2.3 mg/dL (1.7-2.2); PHOSPHOROUS 3.8 mg/dL (2.5-4.5); POTASSIUM 4.3 mmol/L (3.6-5.0); SODIUM 138 mmol/L (132-148); TOTAL PROTEIN 6.5 g/dL (5.8-8.3)
--- NOTE | 2017-02-28 07:57 | CT ---
PROCEDURE: CT Chest without contrast HISTORY: SOB COMPARISON: Chest CT without contrast 07/14/2016. TECHNIQUE: Contiguous axial images were obtained through the chest without intravenous contrast enhancement. Sagittal and coronal reconstructions were performed. Radiation dose (DLP): 811.73 mGy-cm. This CT exam was performed using one or more of the following dose reduction techniques: Automated exposure control, adjustment of the mA and/or kV according to patient size, and/or use of iterative reconstruction technique. FINDINGS: LUNGS: Respiratory motion degrades evaluation of the lungs however limited bilateral basilar dependent atelectasis is appreciated without gross mass evident. Central airways are clear. MEDIASTINUM: Lack venous contrast limits evaluation of mediastinum however there is no gross lymphadenopathy appreciated. Cardiac size is normal once again with pacemaker leads again identified in the right heart. The thoracic aorta is atherosclerotic and upper limits normal caliber 3.6 cm in the descending segment. Extensive coronary calcifications are identified as well as mitral annular calcification. Pulmonary artery caliber appears normal. PLEURA: No pleural fluid. No pneumothorax. BONES: No fracture. No destructive lesion. UPPER ABDOMEN: 3.1 cm left benign adrenal myelolipoma appreciated measuring -16 Hounsfield units density. 4.1 cm infrarenal abdominal aortic aneurysm appears increased in size greater 3.7 cm on 10/23/[address] OTHER FINDINGS: None. IMPRESSION: 1. Trace limited bilateral basilar dependent atelectasis. No infiltrate pneumothorax pleural or pericardial effusion. Respiratory motion degrades evaluation of the lungs significantly 2. Cardiac pacemaker again noted in position. No cardiomegaly or pulmonary vascular derangement identified. 3. No gross lymphadenopathy. Extensive coronary artery atherosclerosis again identified. 4. 3-1 cm incidental benign adrenal myelolipoma. 5. Upper limits normal descending thoracic aorta at 3.6 cm in caliber. Incidental note is made of 4.1 cm infrarenal abdominal aortic aneurysm is increased in size in the interval.
[2017-02-28] MEDS: Levalbuterol 0.63 MG/3 ML Inhal Soln UD IH SCH ×2 (08:01→13:20)
[2017-02-28] MEDS: Insulin Lispro (humaLOG) MEDIUM Coverage SC SCH ×2 (08:15→12:25)
[2017-02-28] MEDS: Levothyroxine 25 MCG TAB PO SCH (09:57)
[2017-02-28] MEDS ORDERED: Enoxaparin 30 mg Syringe SC SCH (10:00)
[2017-02-28 10:10] LABS: TROPONIN I 0.09 ng/mL
[2017-02-28 11:39] VITALS: BP 118/71; RESP 19; TEMP 98.3
[2017-02-28 12:53] VITALS: O2SAT 98
--- NOTE | 2017-02-28 13:05 | PN ---
DATE: 02/28/2017 REASON FOR CONSULTATION AND FOLLOWUP: Coronary artery disease, aortic stenosis, status post permanent pacemaker, altered mental status, and low-grade fever. SUBJECTIVE: The patient denies any chest pain, shortness of breath, not in apparent distress, and lying flat in the bed. PHYSICAL EXAMINATION: VITAL SIGNS: As follows: Temperature afebrile, heart rate 60, and blood pressure 158/75. HEENT: PERRLA. Extraocular muscles intact. NECK: Supple. No carotid bruit or thyromegaly. CHEST: Clear to auscultation. HEART: S1 and S2 regular. ABDOMEN: Soft. EXTREMITIES: Clubbing and cyanosis negative. LABORATORY DATA: Blood workup as follows: WBC of 10.6, hemoglobin of 10.3, hematocrit of 32.5, and platelet count of 241. Chemistry shows sodium of 138, potassium 4.8, chloride 102, carbon dioxide 29, anion gap of 11, BUN 23, and creatinine 0.8. Total glucose 114, total protein 6,5, albumin of 3.5, and albumin-globulin ratio of 1.2. CPK 472. IMPRESSION: Sepsis; depression, bipolar; coronary artery disease; aortic stenosis, status post pacemaker, status post generator change one year ago; dementia; history of chronic obstructive pulmonary disease; low-grade fever; altered mental status; rule out urinary tract infection; rule out pneumonia; diabetes; and borderline troponin positive elevated 0.2. The patient is symptomatic. Altered mental status. Elevated WBC on admission. Possible urinary tract infection or early pneumonia. CAT scan though showed negative for atelectasis noted, but no pneumonia noted. Bilateral basilar dependent atelectasis, pacemaker noted. Chest CT, no gross lymphadenopathy noted on chest CT, 3 to 1 cm incidental benign adrenal myelolipoma noted. Descending thoracic aorta normal infrarenal abdominal aortic aneurysm 4.1 cm noted. RECOMMENDATIONS: Continue broad-spectrum antibiotic, continue beta-sarah, continue glipizide, continue aspirin, continue ramipril, continue atorvastatin, continue metoprolol, continue Plavix, and continue Xopenex. We will add DVT prophylaxis because the patient is lying in the bed all the time and high risk for DVT and PE. We will follow with you. We will discontinue telemetry if remained stable. Since the patient is asymptomatic, troponin borderline positive, we will treat medically. Thank you Dr. Coughlin for providing us the opportunity in taking care of the patient, Luis Felipe Varela. Jadon Lopez MD
[2017-02-28 15:34] VITALS: PULSE 62
--- NOTE | 2017-02-28 16:34 | PN ---
PSYCHIATRIC PROGRESS NOTE. DATE: SUBJECTIVE: The patient is an 89-year-old male who is currently being treated for an acute confusional state. He has advanced dementia. He also has an acute non ST-wave elevated myocardial infarction. The patient is status post pacemaker. I met with the patient as well as spoke to his daughter at bedside. The patient is awake and alert. He was restless during the night, pulled out his IV. Today, the patient is totally disoriented x3, does not know where he is. He has a constricted flat affect. Judgment and insight are poor. No evidence of agitation or hallucinations. His reliability as a historian is quite poor. CURRENT MEDICATIONS: Include ramipril, Aricept 10 mg at bedtime, Ecotrin, glipizide, Januvia, Lipitor, Lopressor, Lovenox, Norvasc, Plavix, Protonix, Synthroid p.r.n., Xanax 0.25 mg, and Xopenex inhaler. LABORATORY DATA: His only new laboratory data is troponin I level is 0.09. His rest of metabolic profile, BUN is 23 and creatinine is 0.8, estimated GFR is greater than 60. Electrolytes normal. Random glucose 117. Rest of profile is all normal. Reviewed nursing notes and small business consultant's notes. PHYSICAL EXAMINATION: CURRENT VITAL SIGNS: Blood pressure is 118/71, pulse 100, afebrile, respiration is 19 per minute. IMPRESSION: The patient has advanced vascular-type dementia. He has acute non ST-wave myocardial infarction. He has behavioral disturbance. He has history of hypothyroidism, history of chronic obstructive pulmonary disease, history of diabetes mellitus. PLAN: We will start Seroquel 50 mg p.o. bedtime and Xanax 0.25 mg at bedtime and continue to monitor his mental status. Kunal Llanes MD
--- NOTE | 2017-03-01 05:21 | DS ---
HISTORY OF PRESENT ILLNESS: The patient is an 89-year-old, seen and examined, seem to be awake, alert, oriented, able to communicate, was able to feed himself today. Daughter is by the bedside and is worried that dad is getting more and more weaker. He was found to be wheezing also; however, not hypoxic. PHYSICAL EXAMINATION: VITAL SIGNS: He is afebrile, pulse 72, respirations 18 and blood pressure 135/80. LUNGS: Bilateral few soft rhonchi in the right upper lung region. HEART: S1 and S2 audible. ABDOMEN: Soft and nontender. No rebound. No guarding. NEUROLOGIC: He is awake and alert, but forgetful and disoriented at times. EXTREMITIES: Bilateral leg, no edema. LABORATORY DATA: Blood sugar is 116. CT scan of the chest was done that shows no significant infiltrate basal atelectasis, no pleural effusion. ASSESSMENT: 1. Non-ST elevation myocardial infarction. 2. Hypertension. 3. Mild dementia. 4. Hyperlipidemia. 5. Status post pacemaker placement. 6. Non-insulin dependant diabetes. 7. Asthmatic bronchitis. 8. Deconditioning. PLAN: The patient is hemodynamically stable, need some rehab and close monitoring, so he will be transferred to TCU. We will monitor and given him range of motion exercises, physical therapy and occupational therapy. Addy Coughlin MD
--- NOTE | 2017-03-01 11:30 | EEG ---
DATE: 02/28/2017 INTRODUCTION: This is a digitally recorded EEG monitoring using standard EEG montages. BACKGROUND RHYTHM: The EEG shows a background activity of 7.5 to 8 Hertz alpha activity in parieto-occipital region. The EEG activity is bilaterally symmetrical and synchronous. There is attenuation of the background activity on eye opening. Moderate amount of myogenic artifact noticed in this EEG recording. ABNORMAL POTENTIALS: No spike, sharp waves or focal slowing was seen. Photic stimulation and hyperventilation: Photic stimulation did not reveal any abnormality. Hyperventilation was not performed. IMPRESSION: Normal EEG. No epileptiform activity seen in this EEG recording. January Geronimo MD
== END 2017-02-28 15:50 | DRG 281 ==
LOC: ED 14:32 → ERH 16:33 → 2RSO 18:04
PROVIDERS: ADMIT Internal Medicine; ATTEND Internal Medicine
DX: I21.4 Non-ST elevation (NSTEMI) myocardial infarction (principal); F01.51 Vascular dementia, unspecified severity, with behavioral disturbance; F05 Delirium due to known physiological condition; G30.9 Alzheimer's disease, unspecified; I08.3 Combined rheumatic disorders of mitral, aortic and tricuspid valves; J44.9 Chronic obstructive pulmonary disease, unspecified; E11.9 Type 2 diabetes mellitus without complications; I10 Essential (primary) hypertension; I67.9 Cerebrovascular disease, unspecified; E78.5 Hyperlipidemia, unspecified; I25.10 Atherosclerotic heart disease of native coronary artery without angina pectoris; F31.9 Bipolar disorder, unspecified; E03.9 Hypothyroidism, unspecified; E78.00 Pure hypercholesterolemia, unspecified; I71.4 Abdominal aortic aneurysm, without rupture; Z79.84 Long term (current) use of oral hypoglycemic drugs; Z95.0 Presence of cardiac pacemaker; Z79.82 Long term (current) use of aspirin

== ENCOUNTER 2017-02-28 16:44 | Inpatient (IN) | payer OTHER ==
[2017-02-28 16:58] VITALS: BMI 23.8
[2017-02-28] MEDS: Levalbuterol 0.63 MG/3 ML Inhal Soln UD IH SCH (19:20)
[2017-02-28] MEDS: Insulin Lispro (humaLOG) MEDIUM Coverage SC SCH (21:57)
[2017-03-01] MEDS: Enoxaparin 30 mg Syringe SC SCH (05:44)
[2017-03-01] MEDS: Levothyroxine 25 MCG TAB PO SCH (05:44)
[2017-03-01] MEDS: Pantoprazole 40 mg EC Tab PO SCH (05:44)
[2017-03-01] MEDS: Insulin Lispro (humaLOG) MEDIUM Coverage SC SCH ×4 (06:46→21:21)
[2017-03-01] MEDS: Levalbuterol 0.63 MG/3 ML Inhal Soln UD IH SCH ×3 (07:43→19:25)
--- NOTE | 2017-03-01 22:58 | HP ---
HISTORY OF PRESENT ILLNESS: The patient is an 89-year-old who was brought to the emergency room because of change in mental status. According to daughter, he has not been doing well, he is not himself. Usually, he used to feed himself, but now he hand shakes and he cannot feed himself, so she brought to the emergency room, workup was done and unremarkable. However, he was found to have positive troponin. Dr. Lopez evaluated the patient and it was decided to treat medically, and given his age and other comorbidities, it is not advisable to do an intervention. PAST MEDICAL HISTORY: Significant for; 1. Hypertension. 2. Dementia. 3. Bipolar disorder. 4. Non-insulin dependent diabetes. 5. Status post pacemaker placement. ALLERGIES: NOT ALLERGIC TO ANY MEDICATION. MEDICATION AT HOME: He is on Norvasc 2.5 daily; Januvia 100 daily; ramipril 5 mg twice a day; levothyroxine 25 mcg daily; glipizide 5 mg twice a day; Aricept 10 mg daily; Lipitor 10 mg Monday, Monday, and Monday; aspirin 81 daily; Xanax 0.25 three times a day. SOCIAL HISTORY: Lives with his daughter. Denies smoking, drinking, or alcohol use. REVIEW OF SYSTEMS: Significant for deconditioning, difficulty walking, he is basically bed bound and gets out of bed to chair with maximum assistance. PHYSICAL EXAMINATION: GENERAL: He is sleepy, but arousable. VITAL SIGNS: Afebrile, pulse 65, respirations 18, and blood pressure 168/80. LUNGS: Bilateral fair airflow. No rhonchi or crackle. HEART: S1 and S2 audible. ABDOMEN: Soft and nontender. No rebound, no guarding. NEUROLOGIC: He is sleepy, but arousable. EXTREMITIES: Bilateral legs, no edema. LABORATORY DATA: Blood sugar is 134. ASSESSMENT: 1. Non-ST elevation myocardial infraction. 2. Dementia. 3. Hypertension. 4. Status post pacemaker placement. 5. Non-insulin dependent diabetes. PLAN: His medications are reviewed and found to be appropriate. Continue to monitor blood sugar. Needs PT and OT. Discussed with daughter. Mahmoodah Perveen, MD [facility] # [id number]
--- NOTE | 2017-03-02 00:23 | CON ---
PSYCHIATRIC CONSULTATION HISTORY OF PRESENT ILLNESS: The patient is an 89-year-old white male who is currently being treated on the transitional care unit for deconditioning, gait dysfunction. He has advanced dementia. He had probable non-ST-wave DE. The patient had a syncopal episode. The patient has been on psychiatric care for many years and follows with them regularly. His advanced dementia has resulted in behavioral and psychotic symptomatology. Two nights ago here, he was up full night pulling out IVs. The patient was started on Seroquel 50 mg at bedtime and alprazolam 0.25 mg at bedtime, slept well last night, but also slept until mid morning. The patient is awake and alert now. PAST MEDICAL HISTORY: The patient in addition to his advanced vascular dementia, he also has a history of recent non-ST-wave DE, hypertension, hyperlipidemia, he has a cardiac pacemaker, lfr-[id number] diabetes mellitus, he has asthmatic bronchitis and gait dysfunction. PERSONAL HISTORY: He has been a for 2 to 3 years, lives with his daughter who cares for him very conscientiously. He was born in [facility] [place] and came to [facility] after [place]. REVIEW OF SYSTEMS: Twelve-point review is noncontributory. PHYSICAL EXAMINATION: VITAL SIGNS: Blood pressure 168/80, pulse 82, afebrile, respirations 18 per minute. PSYCHIATRIC MENTAL STATUS: He is awake. He is alert. He is totally confused, disoriented to all spheres. He is calm at this time. His judgment, insight and recent memory all poor. No hallucinations at this time. Daughter at bedside. IMPRESSION: The patient has advanced dementia with behavioral disturbance, history of psychotic symptomatology. The patient had recent non-ST-wave myocardial infarction. The patient has a history of hyperlipidemia, hypertension, deconditioning, asthmatic bronchitis. PLAN: We will reduce Seroquel to 25 mg at bedtime for recent psychotic agitation. We will also continue alprazolam 0.25 mg p.o. at bedtime. We will continue to closely monitor mental status. Kunal Llanes MD [facility] # [id number]
[2017-03-02] MEDS: Enoxaparin 30 mg Syringe SC SCH (05:36)
[2017-03-02] MEDS: Levothyroxine 25 MCG TAB PO SCH (05:36)
[2017-03-02] MEDS: Pantoprazole 40 mg EC Tab PO SCH (05:36)
[2017-03-02] MEDS: Insulin Lispro (humaLOG) MEDIUM Coverage SC SCH ×4 (06:38→22:11)
[2017-03-02] MEDS: Levalbuterol 0.63 MG/3 ML Inhal Soln UD IH SCH ×3 (07:33→19:36)
--- NOTE | 2017-03-02 13:48 | PN ---
SUBJECTIVE: The patient is an 89-year-old, seen and examined, lying in bed, seem to be comfortable. He is sleepy, but arousable. PHYSICAL EXAMINATION: VITAL SIGNS: He is afebrile, pulse 61, respirations 18 and blood pressure 141/73. LUNGS: Bilateral fair flow. No rhonchi or crackle. HEART: S1 and S2 audible. ABDOMEN: Soft and nontender. No rebound. No guarding. NEUROLOGIC: He is awake, alert, oriented, answers simple question. Moves all extremities. LABORATORY DATA: Blood sugar is 213. ASSESSMENT: 1. Non-ST elevation myocardial infarction, evaluated by cardiology. No recommendation for any aggressive treatment. 2. Bipolar disorder. 3. Dementia. 4. Status post pacemaker placement. 5. Hypertension. 6. Hyperlipidemia. PLAN: We will continue the patient on current medications. He is getting PT/OT. Discussed with the daughter at the bedside. Addy Coughlin MD
--- NOTE | 2017-03-02 15:29 | PN ---
DATE: SUBJECTIVE: The patient is an 89-year-old male with advanced dementia. He is currently being treated on the transitional care unit for gait dysfunction, debilitation. Currently, I spoke to the patient as well as the daughter at bedside. The patient mental status reveals that he is awake, alert, pleasant, playing the harmonica; however, he is confused, disoriented. The patient's daughter states she came in at 11 and the patient was still sleeping. CURRENT MEDICATIONS: Include Altace 5 mg b.i.d., Aricept, Ecotrin, Glucotrol, Humalog, Januvia, Lipitor, Lovenox, Plavix, Seroquel 25 mg at bedtime for past history of recent agitation and constant racing thoughts. The patient is also receiving Xanax 0.25 mg at bedtime and p.r.n. LABORATORY DATA: The patient has no new laboratory data to report. The patient has been cooperating with care, despite confusion, disorientation, and poor memory. PHYSICAL EXAMINATION: VITAL SIGNS: Blood pressure 145/73, pulse 61, respirations 18 per minute, O2 saturation 94%. IMPRESSION: Advanced dementia with recent psychotic and behavioral symptoms, calmer now but still confused. The patient has a gait dysfunction. The patient has a history of recent non-ST wave myocardial infarction, hyperlipidemia, hypertension and asthmatic bronchitis. PLAN: We will discontinue Seroquel for tonight and we will just order 0.25 of Xanax at bedtime and revolve mental status tomorrow. Kunal Llanes MD
[2017-03-03] MEDS: Levothyroxine 25 MCG TAB PO SCH (05:48)
[2017-03-03] MEDS: Pantoprazole 40 mg EC Tab PO SCH (05:48)
[2017-03-03] MEDS: Enoxaparin 30 mg Syringe SC SCH (05:48)
[2017-03-03] MEDS: Insulin Lispro (humaLOG) MEDIUM Coverage SC SCH ×4 (07:02→22:06)
[2017-03-03] MEDS: Levalbuterol 0.63 MG/3 ML Inhal Soln UD IH SCH ×3 (07:46→19:43)
--- NOTE | 2017-03-03 19:21 | PN ---
DATE: SUBJECTIVE: The patient is an 89-year-old male currently being treated in transitional care unit. The patient is somewhat debilitated. He has been receiving physical and occupational therapy with his daughter at bedside. He is recovering from the non-ST wave acute myocardial infarct and acute confusional state. The patient's mental status today reveals he is awake and alert but quite confused. Memory is poor. He is cooperative with staff and disoriented to most spheres. The patient slept apparently fairly well during the night. His doses of Seroquel was stopped. He only receives 0.25 mg of Xanax at bedtime. LABORATORY DATA: His glucose is 105. PHYSICAL EXAMINATION: VITAL SIGNS: Blood pressure 135/71, pulse 67, respirations 18 per minute and afebrile, O2 saturation is 97% on room air. MEDICATIONS: Altace, Aricept, Ecotrin, Glucotrol, Januvia, Lipitor, Lopressor, Lovenox, Norvasc, Plavix, Synthroid, Xanax 0.25 mg at bedtime, mg t.i.d. p.r.n. and he is on Xopenex inhaler. IMPRESSION: Advanced dementia with recent behavioral disturbance, stable now and non-ST wave myocardial infarction. He has history of hypertension and hyperlipidemia. He has permanent cardiac pacemaker. PLAN: Continue Xanax at bedtime. We will follow up to monitor his mental status. Kunal Llanes MD
--- NOTE | 2017-03-03 23:16 | PN ---
DATE: SUBJECTIVE: The patient is an 89-year-old, seen and examined and doing well, participating in therapy. PHYSICAL EXAMINATION: GENERAL: More awake and alert today. VITAL SIGNS: He is afebrile, pulse 63, respiration 14, blood pressure 147/62. LUNGS: Bilateral fair airflow. No rhonchi or crackle. HEART: S1 and S2 audible. ABDOMEN: Soft and nontender. No rebound and guarding. EXTREMITIES: Generalized weakness. Bilateral leg, no edema. LABORATORY DATA: Blood sugar is 105. ASSESSMENT: 1. Status post eba-IV-pmuxfhjjk myocardial infarction. 2. Bipolar disorder. 3. Dementia. 4. Deconditioning and difficulty walking. 5. Hypertension. 6. Non-insulin dependent diabetes. 7. Status post pacemaker placement. PLAN: Continue the patient on current PT/OT, gait training. Continue current medication. Monitor blood sugar. Psych medication is being adjusted by Dr. Loja. Addy Coughlin MD
[2017-03-04] MEDS: Levothyroxine 25 MCG TAB PO SCH (06:08)
[2017-03-04] MEDS: Enoxaparin 30 mg Syringe SC SCH (06:09)
[2017-03-04] MEDS: Pantoprazole 40 mg EC Tab PO SCH (06:09)
[2017-03-04] MEDS: Insulin Lispro (humaLOG) MEDIUM Coverage SC SCH ×2 (06:49→11:43)
[2017-03-04] MEDS: Levalbuterol 0.63 MG/3 ML Inhal Soln UD IH SCH ×3 (07:34→19:56)
[2017-03-04] MEDS: Insulin Reg-HIGH-Coverage SC SCH ×2 (17:08→21:49)
--- NOTE | 2017-03-04 20:05 | PN ---
DATE: SUBJECTIVE: The patient is an 89-year-old, seen and examined, resting comfortably, not in any distress. Participating in therapy. PHYSICAL EXAMINATION VITAL SIGNS: The patient is afebrile, pulse 59, respiration 20, blood pressure 121/60. LUNGS: Bilateral fair airflow. No rhonchi or crackle. HEART: S1 and S2 audible. ABDOMEN: Soft and nontender. No rebound and guarding. NEUROLOGIC: The patient is awake, alert, oriented, able to communicate, has generalized weakness. ASSESSMENT: 1. Dementia. 2. Non-ST elevation myocardial infarction. 3. Hypertension. 4. Status post pacemaker placement. 5. Bipolar disorder. 6. Hyperlipidemia. PLAN: We will continue the patient on current medication. Her blood sugars seems to be running on the high side. I will put him on coverage for high dose regular insulin coverage. Continue to monitor blood sugar. Encourage Physical Therapy, gait training and Occupational Therapy. Addy Coughlin MD
[2017-03-05] MEDS: Enoxaparin 30 mg Syringe SC SCH (05:49)
[2017-03-05] MEDS: Levothyroxine 25 MCG TAB PO SCH (05:49)
[2017-03-05] MEDS: Pantoprazole 40 mg EC Tab PO SCH (05:50)
[2017-03-05] MEDS: Insulin Reg-HIGH-Coverage SC SCH ×4 (07:05→22:20)
[2017-03-05] MEDS: Levalbuterol 0.63 MG/3 ML Inhal Soln UD IH SCH ×3 (07:35→21:10)
--- NOTE | 2017-03-05 21:59 | PN ---
DATE: 03/05/2017 SUBJECTIVE: He is comfortable in bed, in no acute distress, participating in physical therapy. Denies any chest pain. No cough with expectoration. Blood pressure controlled with current medications. Diabetes mellitus type 2, sugar is controlled with current regimen. Review of systems: As per HPI. Rest of the 12-point review of systems reviewed negative. PHYSICAL EXAMINATION: GENERAL: Comfortable in bed, in no acute distress. Awake, alert, and oriented. VITAL SIGNS: He is afebrile. Temperature is 98.8, heart rate is 60 per minute, respiratory rate s 14 per minute, and blood pressure is 140/70. LUNGS: Air entry present and equal bilaterally. No added sound. CARDIOVASCULAR: S1 and S2 normal. No murmur. No gallop. ABDOMEN: Soft, nontender. No hepatosplenomegaly. EXTREMITIES: No edema. CENTRAL NERVOUS SYSTEM: No focal sensory or motor deficit. Moving all the limbs. LABORATORY DATA: Blood sugar 122, 213. MEDICATIONS: Tylenol 650 q. 6 hours p.r.n., Xanax 0..25 mg p.o. t.i.d., Norvasc 2.5 mg daily, aspirin 81 mg daily, Lipitor 20 mg daily, Plavix 75 mg daily, Aricept 10 mg at bedtime, Lovenox 30 mg subcutaneous daily, Glucotrol 5 mg daily, insulin sliding scale, levothyroxine 25 mcg daily, metoprolol 12.5 mg b.i.d., Altace 5 mg b.i.d., and Januvia 100 mg daily, ASSESSMENT: 1. Non-ST elevation myocardial infarction. 2. Bipolar. 3. Dementia. 4. Deconditioning. 5. Hypertension. 6. Diabetes mellitus type 2. 7. Anemia. PLAN: We will continue current medication. He is participating in physical therapy. We will continue beta-blockers. We will continue Xanax, Norvasc 2.5 mg daily, Plavix, Aricept, and sliding scale insulin. We will continue Synthroid 25 mcg daily, Protonix 40 mg daily, and Januvia 100 mg daily. Condition is stable. Participating in physical therapy. Sugar is controlled with current medication. Lindsay Hurtado MD cc:
[2017-03-06] MEDS: Levothyroxine 25 MCG TAB PO SCH (05:44)
[2017-03-06] MEDS: Enoxaparin 30 mg Syringe SC SCH (05:44)
[2017-03-06] MEDS: Pantoprazole 40 mg EC Tab PO SCH (05:44)
[2017-03-06] MEDS: Insulin Reg-HIGH-Coverage SC SCH ×4 (06:55→22:01)
[2017-03-06] MEDS: Levalbuterol 0.63 MG/3 ML Inhal Soln UD IH SCH ×3 (07:36→20:29)
--- NOTE | 2017-03-06 13:57 | PN ---
DATE: SUBJECTIVE: The patient is 89 years old, seen and examined, sleepy but arousable, not in any acute distress. No overnight events. According to nursing staff, she is trying to sleep, ate well. PHYSICAL EXAMINATION: VITAL SIGNS: The patient is afebrile, pulse 60, respirations 18, blood pressure 119/63. LUNGS: Bilateral fair air flow. No rhonchi or crackles. HEART: S1 and S2 audible. ABDOMEN: Soft, nontender. No rebound. No guarding. EXTREMITIES: Bilateral legs 1+ edema. NEUROLOGIC: He is awake and alert, somewhat confused with time and place. LABORATORY EXAM: Blood sugar is 213. ASSESSMENT: 1. Non-ST elevation myocardial infarction. No aggressive medical treatment. 2. Bipolar disorder. 3. Dementia. 4. Status post pacemaker placement. 5. Hypertension. 6. Non-insulin dependant diabetes. 7. Deconditioning. PLAN: I will continue the patient on current medication. He is getting occupational therapy and physical therapy. Discharge plan on Monday or Monday. Addy Coughlin MD
[2017-03-07] MEDS: Levothyroxine 25 MCG TAB PO SCH (06:33)
[2017-03-07] MEDS: Pantoprazole 40 mg EC Tab PO SCH (06:33)
[2017-03-07] MEDS: Enoxaparin 30 mg Syringe SC SCH (06:33)
[2017-03-07] MEDS: Levalbuterol 0.63 MG/3 ML Inhal Soln UD IH SCH ×2 (07:34→13:32)
[2017-03-07] MEDS: Insulin Reg-HIGH-Coverage SC SCH ×4 (07:44→22:22)
--- NOTE | 2017-03-07 09:19 | PN ---
SUBJECTIVE: The patient is an 89-year-old white male who was currently being treated on transitional care unit for debilitation. He has advanced progressive dementia. The patient has been treated for ongoing behavioral disturbance secondary to his dementia maybe for a number of years. The patient's current mental status reveals he is awake, he is participating in a limited basis with physical therapist. He is very confused, disoriented and he has confabulatory thinking. He is disoriented to all his spheres.. His recent memory and judgement is poor. CURRENT MEDICATIONS: Include Altace, Aricept 10 mg bedtime, Ecotrin, Glucotrol, Januvia, Lipitor, Lopressor, Lovenox, Norvasc, Plavix, Seroquel 25 mg at bedtime, Synthroid 25 mcg p.o. q. a.m. and Xanax 0.25 mg at bedtime. 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 The patient has a history of hypothyroidism, hypertension, chronic obstructive pulmonary disease, debilitation, gait dysfunction, cardiac pacemaker. He has history of recent non-ST wave elevation myocardial infarction. He has a permanent cardiac pacemaker. PLAN: We will continue to monitor mental status. Continue on above psychotropic medicines. Kunal Llanes MD [facility]
[2017-03-07 10:34] VITALS: RESP 18
--- NOTE | 2017-03-07 13:50 | PN ---
DATE: SUBJECTIVE: The patient is an 89-year-old male, currently being treated on Transitional Care Unit for gait dysfunction, also for advanced dementia. He has had recent behavioral disturbance. He was restarted on Seroquel 25 mg at bedtime. He has history of hypertension, non-insulin dependent diabetes mellitus and recent non-ST wave elevated myocardial infarction. I spoke with the patient's daughter at length. The patient's mental status, he is awake, he is alert, although he is very disoriented to all spheres. His recent memory and judgment are poor. There is no agitation or anxiety. He seems to be sleeping comfortably during the night and tolerating current medications. MEDICATIONS: Other medicines include Altace, Aricept 10 mg bedtime, Ecotrin 81 mg daily, Glucotrol, Humulin protocol, Januvia, Lipitor, metoprolol, Lovenox, Coreg, Protonix, Seroquel 25 mg at bedtime, and Xanax 0.25 mg at bedtime, and Xopenex inhaler. IMPRESSION: Advanced dementia with recent behavioral disturbance for psychotic symptomatology. He has recent non-ST wave myocardial infarction, severe dementia, hypertension, non-insulin dependent diabetes mellitus, gait dysfunction. PLAN: Continue Seroquel 25 mg at bedtime, continue Xanax 0.25 mg at bedtime. Kunal Llanes MD
--- NOTE | 2017-03-08 00:03 | PN ---
SUBJECTIVE: The patient is an 89 years old, seen and examined, sitting in chair, seems to be comfortable, sleepy but arousable. PHYSICAL EXAMINATION: VITAL SIGNS: He is afebrile, pulse 60, respiration 18, blood pressure 119/80. LUNGS: Bilateral fair air flow. No rhonchi or crackles. HEART: S1 and S2 audible. ABDOMEN: Soft, nontender. No rebound. No guarding. NEUROLOGIC: The patient is awake, alert, oriented, able to communicate. Answers simple questions. LABORATORY DATA: Blood sugar is 109. ASSESSMENT: 1. Status post non-ST elevation myocardial infarction, being managed by medical management. 2. Dementia. 3. Noninsulin-dependent diabetes. 4. Hypertension. 5. Status post pacemaker placement. 6. Deconditioning and difficulty walking. PLAN: We will continue the patient on current medications. She is getting Ramipril, donepezil, aspirin, glipizide 5 mg twice a day. Blood sugar has been monitored, He is on Lipitor and Januvia. Continue him on metoprolol. He is on Lovenox 30 mg for DVT prophylaxis. He is on Plavix and Protonix. He is being managed by for his insomnia. He gets Xanax as needed, Xopenex for COPD, I will discontinue since his congestion and wheezing have gone. Addy Coughlin MD
[2017-03-08] MEDS: Enoxaparin 30 mg Syringe SC SCH (06:07)
[2017-03-08] MEDS: Levothyroxine 25 MCG TAB PO SCH (06:07)
[2017-03-08] MEDS: Pantoprazole 40 mg EC Tab PO SCH (06:07)
[2017-03-08 06:25] VITALS: PULSE 60; TEMP 97.6
[2017-03-08] MEDS: Insulin Reg-HIGH-Coverage SC SCH ×2 (07:06→12:13)
[2017-03-08 07:12] VITALS: O2SAT 96
[2017-03-08 11:09] VITALS: BP 122/62
--- NOTE | 2017-03-09 10:26 | DS ---
HISTORY OF PRESENT ILLNESS: The patient is an 89-year-old who came in with altered mental status. According to daughter, he was not acting himself, he usually feed himself, but he was dropping. He was unable to hold his cup, so she brought him to emergency room. The patient was evaluated. He was found to have non-ST elevation [place]. Cardiology consult by Dr. Lopez was done, who recommended conservative treatment. Other workup was negative, so he was transferred to TCU for rehab and occupational and physical therapy. His stay in TCU was uneventful. He participated in therapy and doing well. PHYSICAL EXAMINATION: GENERAL: Today; he is awake, alert, oriented, and communicative. VITAL SIGNS: He is afebrile, pulse 60, respirations 18, and blood pressure 132/62. LUNGS: Bilateral fair airflow. No rhonchi or crackles. HEART: S1 and S2 audible. ABDOMEN: Soft and nontender. No rebound. No guarding. NEUROLOGIC: The patient is awake and alert and able to follow simple commands. LABORATORY DATA: Blood sugar is 137. ASSESSMENT: 1. Status post non-ST elevation myocardial infarction, treated with conservative medical treatment. 2. Hypertension. 3. Mild dementia. 4. Deconditioning and difficulty walking. 5. Status post pacemaker placement. 6. Mvs-qonryor-zpkdpcpni diabetes. PLAN: The patient is being discharged home on his usual medication. His daughter is very caring and concern and we will follow closely. She will follow up with Dr. Mccarthy as an outpatient. Addy Coughlin MD
== END 2017-03-08 15:08 | disposition home or self-care (01) | DRG 555 ==
LOC: TRCU 16:44
PROVIDERS: ADMIT Internal Medicine; ATTEND Internal Medicine
PROC: 3E0F7GC Introduction of Other Therapeutic Substance into Respiratory Tract, Via Natural or Artificial Opening (ICD-10-PCS; 2017-02-28)
PROC: F07Z9FZ Gait Training/Functional Ambulation Treatment using Assistive, Adaptive, Supportive or Protective Equipment (ICD-10-PCS; principal; 2017-03-01)
PROC: F08Z4FZ Home Management Treatment using Assistive, Adaptive, Supportive or Protective Equipment (ICD-10-PCS; 2017-03-02)
DX: R26.2 Difficulty in walking, not elsewhere classified (principal); I21.4 Non-ST elevation (NSTEMI) myocardial infarction; F01.51 Vascular dementia, unspecified severity, with behavioral disturbance; G30.9 Alzheimer's disease, unspecified; E11.9 Type 2 diabetes mellitus without complications; I10 Essential (primary) hypertension; D64.9 Anemia, unspecified; R53.81 Other malaise; J44.9 Chronic obstructive pulmonary disease, unspecified; F31.9 Bipolar disorder, unspecified; E78.5 Hyperlipidemia, unspecified; E03.9 Hypothyroidism, unspecified; Z79.84 Long term (current) use of oral hypoglycemic drugs; Z95.0 Presence of cardiac pacemaker